=== PATIENT | female | born 1950 | race Caucasian/White ===

== ENCOUNTER 2025-01-20 16:31 | Inpatient (IN) | payer MEDICAID ==
[~2025-01-20] VITALS: Ht 147.3 cm; Wt 81.6 kg
[2025-01-20] MEDS ORDERED: CLOBETASOL EMOL15 GM T (16:56)
[2025-01-20] MEDS ORDERED: DAILY VITE1 EACH PO (16:59)
[2025-01-20] MEDS ORDERED: VITAMIN D250 MC1 PO (16:59)
[2025-01-20] MEDS ORDERED: FEROSUL325 MG PO (17:00)
[2025-01-20] MEDS ORDERED: FUROSEMIDE40 MG PO (17:00)
[2025-01-20] MEDS ORDERED: HUMALOG100 UNIT/2 SQ (17:06)
[2025-01-20] MEDS ORDERED: JARDIANCE25 MG PO (17:07)
[2025-01-20] MEDS ORDERED: LANTUS100 UNIT/1 SQ ×2 (17:08→17:09)
[2025-01-20] MEDS ORDERED: LOSARTAN POTASS25 M1 PO (17:10)
[2025-01-20] MEDS ORDERED: LOPRESSOR25 MG PO (17:11)
[2025-01-20] MEDS ORDERED: OMEPRAZOLE MAGN20 MG PO (17:12)
[2025-01-20] MEDS ORDERED: KENALOG 0.1%80 GM T ×2 (17:13→17:20)
[2025-01-20] MEDS ORDERED: ACETAMINOPHEN650 M5 PO (17:14)
[2025-01-20] MEDS ORDERED: [UNRECOGNIZED DRUG - OTHER] R (17:15)
[2025-01-20] MEDS ORDERED: GENTEAL TEARS 015 ML OP (17:17)
[2025-01-20] MEDS ORDERED: LOPERAMIDE HCL2 MG PO (17:17)
[2025-01-20] MEDS ORDERED: MILK OF MA400 MG/53 PO (17:18)
[2025-01-20] MEDS ORDERED: Ondansetron4 MG PO (17:18)
[2025-01-20] MEDS ORDERED: LORazepam 1 MG TAB PO PRN (17:25)
[2025-01-20] MEDS ORDERED: Water, Sterile 10 ML VIAL IM PRN (17:25)
[2025-01-20] MEDS ORDERED: ACETAMINOPHEN 325 MG TAB PO PRN (17:30)
[2025-01-20] MEDS ORDERED: MG-AL HYDROXIDE/SIMETICONE 30 ML UDC PO PRN (17:30)
[2025-01-20] MEDS ORDERED: TRIAMCINOLONE ACETONIDE 0.1% CREAM 15 GM TUBE T PRN (19:20)
[2025-01-20 20:48] VITALS: BP 118/81
[2025-01-20] MEDS ORDERED: risperiDONE 0.5 MG TAB PO SCH (21:00)
[2025-01-20] MEDS ORDERED: Insulin Glargine, Recombinan 300 UNITS/3 ML PEN SC SCH (21:00)
[2025-01-20] MEDS ORDERED: Menthol/Zinc Oxide 4 GM THIN T SCH (21:00)
[2025-01-20] MEDS ORDERED: DEXTROSE 50% 25 GM/50 ML VIAL IV PRN (22:05)
[2025-01-21] MEDS ORDERED: FUROSEMIDE 40 MG TAB PO SCH (06:00)
[2025-01-21 06:12] LABS: BASO # 0.0 10*3/uL (0.0-0.1); BASO % 0.6 % (0.0-1.0); EOS # 0.2 10*3/uL (0.0-0.4); EOS % 2.5 % (1.0-4.0); MEAN CELL VOLUME 91.0 fl (81.0-99.0); MEAN CORPUSCULAR HGB 30.1 pg (27.0-31.0); MEAN PLATELET VOLUME 12.9 fl (9.6-12.3); MONO # 0.7 10*3/uL (0.1-1.0); MONO % 11.4 % (3.0-9.0); NEUT # 3.9 10*3/uL (2.3-7.9); NEUT % 60.9 % (47.0-73.0); NUCLEATED RED BLOOD CELL 0.0 % (0.0-0.0); NUCLEATED RED BLOOD CELL 0.0 10*3/uL (0.0-0.0); PLATELET COUNT AUTOMATED 136 10*3/uL (130-400); RED CELL DISTRI WIDTH 12.9 % (0-14.5)
[2025-01-21 06:30] LABS: BUN 28 mg/dl (9-23); LDL CHOLESTEROL 96 mg/dL (9-159); SGPT/ALT 18 U/L (5-49)
[2025-01-21 06:33] LABS: B-hCG (QUALITATIVE) NEGATIVE (NEGATIVE)
[2025-01-21 06:43] LABS: VITAMIN D, 25-HYDROXY 98.1 ng/mL (30-100)
[2025-01-21] MEDS ORDERED: INSULIN LISPRO 1 UNIT/0.01 ML SQ SCH (07:30)
[2025-01-21 08:40] VITALS: BP 126/64
[2025-01-21] MEDS ORDERED: OMEPRAZOLE 20 MG CAP PO SCH (09:00)
[2025-01-21] MEDS ORDERED: EMPAGLIFLOZIN 25 MG TABLET PO SCH (09:00)
[2025-01-21 17:13] LABS: BILIRUBIN Negative (Negative); BLOOD Negative (Negative); CLARITY Clear (Clear); COLOR Yellow (Yellow); KETONE Negative (Negative); LEUKO ESTERASE Negative (Negative); NITRITE Negative (Negative); PH 5.5 (4.5-8.0); SPECIFIC GRAVITY 1.015 (1.001-1.030); UROBILINOGEN 1.0 E.U./dl (0.0-1.0)
[2025-01-21 17:33] LABS: BACTERIA 2+; EPITHELIAL CELLS 0-2
[2025-01-21 20:00] VITALS: BP 125/68
[2025-01-22 06:06] LABS: BASO # 0.0 10*3/uL (0.0-0.1); BASO % 0.6 % (0.0-1.0); EOS # 0.2 10*3/uL (0.0-0.4); EOS % 2.2 % (1.0-4.0); MEAN CELL VOLUME 91.8 fl (81.0-99.0); MEAN CORPUSCULAR HGB 30.4 pg (27.0-31.0); MEAN PLATELET VOLUME 12.9 fl (9.6-12.3); MONO # 0.7 10*3/uL (0.1-1.0); MONO % 10.1 % (3.0-9.0); NEUT # 4.2 10*3/uL (2.3-7.9); NEUT % 62.2 % (47.0-73.0); NUCLEATED RED BLOOD CELL 0.0 % (0.0-0.0); NUCLEATED RED BLOOD CELL 0.0 10*3/uL (0.0-0.0); PLATELET COUNT AUTOMATED 131 10*3/uL (130-400); RED CELL DISTRI WIDTH 13.0 % (0-14.5)
[2025-01-22 06:52] LABS: BUN 29.0 mg/dl (9-23)
[2025-01-22 08:02] VITALS: BP 119/52
[2025-01-22] MEDS ORDERED: MULTIVITAMIN 1 TAB TAB PO SCH (09:00)
[2025-01-22] MEDS ORDERED: Cholecalciferol 2,000 UNIT TABLET (50 MCG) PO SCH (09:00)
[2025-01-22] MEDS ORDERED: AMMONIUM LACTATE 12% LOTION T SCH (10:00)
[2025-01-22 20:00] VITALS: BP 112/54
[2025-01-23 06:00] LABS: BUN 31.0 mg/dl (9-23)
[2025-01-23 07:51] VITALS: BP 110/54
[2025-01-23] MEDS ORDERED: FERROUS SULFATE 325 MG TAB PO SCH (10:00)
[2025-01-23] MEDS ORDERED: Fosfomycin Tromethamine 3 GM PDS PO SCH (11:00)
[2025-01-23] MEDS ORDERED: Ondansetron Hydrochloride 4 MG TAB PO PRN (17:05)
[2025-01-23 20:00] VITALS: BP 119/50
[2025-01-24 08:00] VITALS: BP 130/50
[2025-01-24] MEDS ORDERED: Rivastigmine Tartrate 4.6 MG/24 HR PATCH T SCH (09:30)
[2025-01-24 20:00] VITALS: BP 132/72
[2025-01-25 08:00] VITALS: BP 102/60
[2025-01-25 20:08] VITALS: BP 100/73
[2025-01-26 08:00] VITALS: BP 117/55
[2025-01-26 20:00] VITALS: BP 117/67
[2025-01-27 07:26] LABS: BUN 24.0 mg/dl (9-23)
[2025-01-27 08:27] VITALS: BP 98/63
[2025-01-27] MEDS ORDERED: RISPERIDONE1 M1 OGT (09:26)
[2025-01-27] MEDS ORDERED: RIVASTIGMINE1 EACH T (09:26)
== END 2025-01-27 10:56 | disposition home or self-care (01) | DRG 750 ==
LOC: 3N 16:31
PROVIDERS: Internal Medicine; Registered Nurse; ADMIT Psychiatry & Neurology Psychiatry; ATTEND Psychiatry & Neurology Psychiatry
PROC: GZHZZZZ Group Psychotherapy (ICD-10-PCS; principal; 2025-01-21)
DX: F23 Brief psychotic disorder (principal); F33.3 Major depressive disorder, recurrent, severe with psychotic symptoms; L97.919 Non-pressure chronic ulcer of unspecified part of right lower leg with unspecified severity; L97.929 Non-pressure chronic ulcer of unspecified part of left lower leg with unspecified severity; I87.313 Chronic venous hypertension (idiopathic) with ulcer of bilateral lower extremity; G30.9 Alzheimer's disease, unspecified; F02.80 Dementia in other diseases classified elsewhere, unspecified severity, without behavioral disturbance, psychotic disturbance, mood disturbance, and anxiety; E11.51 Type 2 diabetes mellitus with diabetic peripheral angiopathy without gangrene; I50.22 Chronic systolic (congestive) heart failure; K21.9 Gastro-esophageal reflux disease without esophagitis; E11.42 Type 2 diabetes mellitus with diabetic polyneuropathy; E55.9 Vitamin D deficiency, unspecified; F60.0 Paranoid personality disorder; I13.0 Hypertensive heart and chronic kidney disease with heart failure and stage 1 through stage 4 chronic kidney disease, or unspecified chronic kidney disease; N18.32 Chronic kidney disease, stage 3b; N30.00 Acute cystitis without hematuria; B96.20 Unspecified Escherichia coli [E. coli] as the cause of diseases classified elsewhere; Z16.12 Extended spectrum beta lactamase (ESBL) resistance; Z79.4 Long term (current) use of insulin; Z83.3 Family history of diabetes mellitus